=== PATIENT | male | born 1965 | race Two or more races ===

== ENCOUNTER 2022-08-06 10:01 | Outpatient (CLI) | payer OTHER | END 2022-08-06 10:03 | disposition home or self-care (01) | LOC: NUCLEAR 10:01 | PROVIDERS: ATTEND Internal Medicine Cardiovascular Disease | DX: I87.2 Venous insufficiency (chronic) (peripheral) (principal) ==

== ENCOUNTER 2024-10-26 08:23 | Outpatient (CLI) | payer OTHER | END 2024-10-26 08:24 | disposition home or self-care (01) | LOC: NUCLEAR 08:23 | PROVIDERS: ATTEND Internal Medicine Gastroenterology | DX: C18.2 Malignant neoplasm of ascending colon (principal) | CPT/HCPCS: 78816; A9552 ==

== ENCOUNTER 2024-11-25 10:18 | Inpatient (IN) | payer OTHER ==
[~2024-11-25] VITALS: Ht 172.7 cm; Wt 70.3 kg
[~2024-11-25 10:18] MED LIST: GEMFIBROZIL600 MG PO; OXYBUTYNIN CHL2.5 MG PO; PEPCID AC20 MG PO; PREVACID15 M1 PO; ROSUVASTATIN CAL5 MG PO; TAMS0.4C PO
[2024-11-25] MEDS ORDERED: MORPHINE SULFATE 4 MG/ML VIAL IV STA (11:05)
[2024-11-25] MEDS ORDERED: 0.9 % SODIUM CHLORIDE 1,000 ML IV STA (11:07)
[2024-11-25 11:38] LABS: HEMATOCRIT 30.4 % (39.0-48.0); MEAN CELL VOLUME 75.3 fL (80.0-100.00); MEAN CORPUSCULAR HEMOGLOBIN 23.5 pg (27.00-32.0); MEAN CORPUSCULAR HGB CONC 31.2 g/dl (32.0-36.0); PLATELET COUNT 310 K/uL (150-450); RED BLOOD COUNT 4.03 M/uL (4.00-6.00); RED CELL DISTRIBUTION WIDTH 16.1 % (11.5-14.5)
[2024-11-25 11:39] LABS: HEMOGLOBIN 9.5 g/dL (13-16.00)
[2024-11-25 11:53] LABS: ALBUMIN 4.1 gm/dL (3.4-5.0); BILIRUBIN TOTAL 0.82 mg/dL (0.3-1.2); BILIRUBIN,CONJUGATED 0.22 mg/dL (0.0-0.2); BILIRUBIN,UNCONJUGATED 0.6 mg/dL (0.0-0.6); CALCIUM 9.3 mg/dL (8.5-10.1); CREATININE SERUM 1.33 mg/dL (0.70-1.30); GFR 55.22; POTASSIUM 3.76 mEq/L (3.5-5.1); TOTAL PROTEIN 8.1 gm/dL (6.4-8.2)
[2024-11-25] MEDS ORDERED: PIPERACILLIN/TAZOBACTAM SODIUM 3.375 GM VIAL IV STA (12:24)
[2024-11-25] MEDS ORDERED: PIPERACILLIN/TAZOBACTAM SODIUM 3.375 GM VIAL IV ONE (12:32)
[2024-11-25] MEDS ORDERED: DEXTROSE 5 % AND 0.9 % NACL 1,000 ML IV SCH (12:45)
[2024-11-25] MEDS ORDERED: Cyanocobalamin/Mecobalamin 1 TAB.SL SL SCH (12:47)
[2024-11-25 13:00] LABS: URINE APPEARANCE Cloudy; URINE BILIRRUBIN Negative (NEGATIVE); URINE BLOOD Negative; URINE COLOR Yellow; URINE GLUCOSE Negative (NEGATIVE); URINE KETONE Trace (NEGATIVE); URINE LEUKOCYTE Small; URINE NITRATE Negative; URINE PROTEIN Trace (NEGATIVE)
[2024-11-25] MEDS ORDERED: MORPHINE SULFATE 4 MG/ML VIAL IV PRN (13:00)
[2024-11-25] MEDS ORDERED: FUROsemide 20 MG/2 ML VIAL IV SCH (13:00)
[2024-11-25 13:04] LABS: URINE CAST 11.63 uL (0.0-1.40); URINE EPITHELIAL CELLS 40.3 uL (0.0-38.8); URINE WBC 300.1 uL (0.0-23.2)
[2024-11-25 13:15] LABS: URINE CRYSTALS FEW /HPF
[2024-11-25 13:22] VITALS: BP 127/66
[2024-11-25] MEDS ORDERED: DIATRIZOATE MEGLUMINE, SODIUM 30 ML BOTTLE PO STA (15:07)
[2024-11-25] MEDS ORDERED: ENOXAPARIN SODIUM 40 MG/0.4 ML SYRINGE SUBCUTANEO SCH (17:00)
[2024-11-25 19:43] VITALS: BP 146/86; O2SAT 99
[2024-11-25] MEDS ORDERED: TAMSULOSIN HCL 0.4 MG CAP PO SCH (21:00)
[2024-11-25] MEDS ORDERED: FAMOTIDINE/PF 20 MG/2 ML VIAL IV SCH (21:00)
[2024-11-26] VITALS: BP 108/66; O2SAT 97
[2024-11-26 08:09] VITALS: BP 116/69; O2SAT 99
[2024-11-26] MEDS ORDERED: SOD FERRIC GLUC COMPLX/SUCROSE 62.5 MG in 0.9 % SODIUM CHLORIDE 50 ML IV SCH (12:00)
[2024-11-26 16:37] VITALS: BP 122/80; O2SAT 100
[2024-11-26] MEDS ORDERED: CEFTRIAXONE SODIUM 2,000 MG VIAL IV STA (16:42)
[2024-11-27 00:28] VITALS: BP 117/74; O2SAT 97
[2024-11-27 08:21] VITALS: BP 114/72; O2SAT 98
[2024-11-27] MEDS ORDERED: PEG3350/SOD SULF,BICARB,CL/KCL 4,000 ML GALLON PO NR (14:00)
[2024-11-27 16:54] VITALS: BP 145/73; O2SAT 100
[2024-11-27] MEDS ORDERED: CEFTRIAXONE SODIUM 2,000 MG VIAL IV SCH (17:00)
[2024-11-28 00:44] VITALS: BP 137/79; O2SAT 98
[2024-11-28 02:22] LABS: HEMATOCRIT 35.3 % (39.0-48.0); HEMOGLOBIN 11.7 g/dL (13-16.00); MEAN CELL VOLUME 78.2 fL (80.0-100.00); MEAN CORPUSCULAR HEMOGLOBIN 25.8 pg (27.00-32.0); PLATELET COUNT 277 K/uL (150-450); RED BLOOD COUNT 4.52 M/uL (4.00-6.00); RED CELL DISTRIBUTION WIDTH 18.4 % (11.5-14.5)
[2024-11-28 02:41] LABS: INR 1.3; PARTIAL THROMBOPLASTIN TIME 37.3 SECONDS (22.0-34.0); PROTHROMBIN TIME 13.9 SECONDS (9.0-11.5)
[2024-11-28 02:42] LABS: ALBUMIN 3.4 gm/dL (3.4-5.0); CALCIUM 8.7 mg/dL (8.5-10.1); CREATININE SERUM 0.83 mg/dL (0.70-1.30); GFR 95.16; PHOSPHOROUS 2.9 mg/dL (2.5-4.9); POTASSIUM 3.28 mEq/L (3.5-5.1)
[2024-11-28 08:00] VITALS: BP 136/83
[2024-11-28] MEDS ORDERED: POTASSIUM CHLORIDE 20MEQ/100ML H2O PB IV NR ×2 (08:15→09:45)
[2024-11-28] MEDS ORDERED: ONDANSETRON HCL 2 MG/ML VIAL IV SCH (09:00)
[2024-11-28] MEDS ORDERED: DEXTROSE 50 % IN WATER 0.5 G/ML DISP.SYRIN IV PRN (14:45)
[2024-11-28] MEDS ORDERED: ONDANSETRON HCL 2 MG/ML VIAL IV PRN (14:45)
[2024-11-28] MEDS ORDERED: OxyCODONE HCL 5 MG TABLET (ROXICODONE) PO PRN (14:45)
[2024-11-28] MEDS ORDERED: MORPHINE SULFATE 4 MG/ML CARTRIDGE IV PRN (14:45)
[2024-11-28] MEDS ORDERED: 0.9 % SODIUM CHLORIDE 1,000 ML IV SCH (14:45)
[2024-11-28] MEDS ORDERED: BUPIVACAINE HCL 30 ML VIAL IJ ONE (15:15)
[2024-11-28] MEDS ORDERED: LIDOCAINE HCL 1%/EPINEPHRINE 20ML VIAL IJ ONE (15:15)
[2024-11-28] MEDS ORDERED: CEFTRIAXONE SODIUM 2,000 MG VIAL IV ONE (15:15)
[2024-11-28] MEDS ORDERED: METRONIDAZOLE/SODIUM CHLORIDE 500 MG/100 ML PIGGYBACK IV ONE (15:15)
[2024-11-28] MEDS ORDERED: METRONIDAZOLE/SODIUM CHLORIDE 500 MG/100 ML PIGGYBACK IV SCH (15:45)
[2024-11-28] MEDS ORDERED: CEFTRIAXONE SODIUM 2,000 MG VIAL IV SCH (15:45)
[2024-11-28] MEDS ORDERED: POLYETHYLENE GLYCOL 3350 17 GM BLIST.PACK PO SCH (17:00)
[2024-11-28] MEDS ORDERED: MORPHINE SULFATE 4 MG/ML VIAL IV ONE (17:00)
[2024-11-28] MEDS ORDERED: GABAPENTIN 300 MG CAPSULE PO SCH (17:00)
[2024-11-28] MEDS ORDERED: HYOSCYAMINE SULFATE 0.125 MG TAB.SUBL SL SCH (17:00)
[2024-11-28] MEDS ORDERED: PIPERACILLIN/TAZOBACTAM SODIUM 3.375 GM in 0.9 % SODIUM CHLORIDE 100 ML IV SCH (19:01)
[2024-11-28] MEDS ORDERED: ACETAMINOPHEN 500 MG GEL..CAP PO SCH (20:00)
[2024-11-28 20:36] LABS: HEMATOCRIT 34.8 % (39.0-48.0); HEMOGLOBIN 11.3 g/dL (13-16.00); MEAN CORPUSCULAR HEMOGLOBIN 25.5 pg (27.00-32.0); MEAN CORPUSCULAR HGB CONC 32.3 g/dl (32.0-36.0); PLATELET COUNT 338 K/uL (150-450); RED BLOOD COUNT 4.41 M/uL (4.00-6.00); RED CELL DISTRIBUTION WIDTH 18.5 % (11.5-14.5)
[2024-11-28] MEDS ORDERED: TAMSULOSIN HCL 0.4 MG CAP PO ONE (20:47)
[2024-11-28] MEDS ORDERED: FAMOTIDINE/PF 20 MG/2 ML VIAL ONE (20:47)
[2024-11-28] MEDS ORDERED: CELECOXIB 200 MG CAPSULE PO ONE (20:47)
[2024-11-28 20:56] LABS: ALBUMIN 3.1 gm/dL (3.4-5.0); CALCIUM 8.2 mg/dL (8.5-10.1); CREATININE SERUM 0.76 mg/dL (0.70-1.30); GFR 105.34; MAGNESIUM 1.6 mg/dL (1.8-2.4); PHOSPHOROUS 2.8 mg/dL (2.5-4.9); POTASSIUM 3.44 mEq/L (3.5-5.1)
[2024-11-28] MEDS ORDERED: CELECOXIB 200 MG CAPSULE PO SCH (21:00)
[2024-11-28] MEDS ORDERED: FAMOTIDINE/PF 20 MG/2 ML VIAL IV PUSH SCH (21:00)
[2024-11-28 22:01] VITALS: BP 157/87; O2SAT 98
[2024-11-28 22:20] VITALS: BP 168/74; O2SAT 95
[2024-11-29 00:52] VITALS: BP 138/75; O2SAT 96
[2024-11-29 10:05] VITALS: BP 146/76; O2SAT 96
[2024-11-29 10:20] LABS: ALBUMIN 2.8 gm/dL (3.4-5.0); CALCIUM 8.3 mg/dL (8.5-10.1); CREATININE SERUM 0.76 mg/dL (0.70-1.30); GFR 105.34; MAGNESIUM 1.7 mg/dL (1.8-2.4); PHOSPHOROUS 2.6 mg/dL (2.5-4.9); POTASSIUM 3.57 mEq/L (3.5-5.1)
[2024-11-29] MEDS ORDERED: MAGNESIUM SULFATE IN WATER 50 ML IV NR (12:00)
[2024-11-29] MEDS ORDERED: ENOXAPARIN SODIUM 40 MG/0.4 ML SYRINGE SUBCUTANEO SCH (17:00)
[2024-11-29 19:18] VITALS: BP 125/75; O2SAT 98
[2024-11-30 01:02] VITALS: BP 131/79; O2SAT 98
[2024-11-30 08:00] VITALS: BP 144/85; O2SAT 98
[2024-11-30 08:21] LABS: HEMATOCRIT 30.8 % (39.0-48.0); HEMOGLOBIN 9.9 g/dL (13-16.00); MEAN CORPUSCULAR HEMOGLOBIN 25.6 pg (27.00-32.0); MEAN CORPUSCULAR HGB CONC 32.3 g/dl (32.0-36.0); PLATELET COUNT 306 K/uL (150-450); RED BLOOD COUNT 3.89 M/uL (4.00-6.00); RED CELL DISTRIBUTION WIDTH 18.4 % (11.5-14.5)
[2024-11-30] MEDS ORDERED: ENOXAPARIN SODIUM 40 MG/0.4 ML SYRINGE SUBCUTANEO SCH (09:00)
[2024-11-30 09:03] LABS: CALCIUM 8.5 mg/dL (8.5-10.1); CREATININE SERUM 0.82 mg/dL (0.70-1.30); GFR 96.5; MAGNESIUM 2.4 mg/dL (1.8-2.4); PHOSPHOROUS 2.6 mg/dL (2.5-4.9); POTASSIUM 3.27 mEq/L (3.5-5.1)
[2024-11-30] MEDS ORDERED: POTASSIUM CHLORIDE 20MEQ/100ML H2O PB IV NR (11:15)
[2024-11-30 16:00] VITALS: BP 137/86; O2SAT 96
[2024-11-30 23:52] VITALS: BP 124/75; O2SAT 99
[2024-12-01 08:47] VITALS: BP 131/80; O2SAT 98
[2024-12-01 16:00] VITALS: BP 154/87; O2SAT 97
[2024-12-02 00:27] VITALS: BP 136/81; O2SAT 99
[2024-12-02] MEDS ORDERED: SOD FERRIC GLUC COMPLX/SUCROSE 62.5 MG/5 ML AMPUL IV ONE (06:13)
[2024-12-02 08:00] VITALS: BP 147/84
[2024-12-02 16:00] VITALS: BP 159/82; O2SAT 98
[2024-12-02] MEDS ORDERED: FUROsemide 20 MG/2 ML VIAL IV SCH (17:00)
[2024-12-02] MEDS ORDERED: FAMOtidine 20 MG TABLET PO SCH (21:00)
[2024-12-03 00:37] VITALS: BP 145/79; O2SAT 98
[2024-12-03 07:58] LABS: HEMATOCRIT 28.6 % (39.0-48.0); MEAN CELL VOLUME 77.7 fL (80.0-100.00); MEAN CORPUSCULAR HGB CONC 33.5 g/dl (32.0-36.0); PLATELET COUNT 325 K/uL (150-450); RED BLOOD COUNT 3.68 M/uL (4.00-6.00); RED CELL DISTRIBUTION WIDTH 19.2 % (11.5-14.5)
[2024-12-03 08:00] VITALS: BP 139/75; O2SAT 96
[2024-12-03 08:02] LABS: HEMOGLOBIN 9.6 g/dL (13-16.00)
[2024-12-03 08:22] LABS: CALCIUM 8.1 mg/dL (8.5-10.1); CREATININE SERUM 0.79 mg/dL (0.70-1.30); GFR 100.74; MAGNESIUM 1.6 mg/dL (1.8-2.4); POTASSIUM 3.44 mEq/L (3.5-5.1)
[2024-12-03 16:23] VITALS: BP 133/77; O2SAT 99
== END 2024-12-03 21:04 | disposition home or self-care (01) | DRG 329 ==
LOC: ER 10:21 → SURH 13:38
PROVIDERS: General Practice; Surgery; ADMIT Internal Medicine Geriatric Medicine; ATTEND Internal Medicine Geriatric Medicine
PROC: BW21YZZ Computerized Tomography (CT Scan) of Abdomen and Pelvis using Other Contrast (ICD-10-PCS; 2024-11-25)
PROC: B54DZZZ Ultrasonography of Bilateral Lower Extremity Veins (ICD-10-PCS; 2024-11-25)
PROC: 8E0ZXY6 Isolation (ICD-10-PCS; 2024-11-25)
PROC: 30233N1 Transfusion of Nonautologous Red Blood Cells into Peripheral Vein, Percutaneous Approach (ICD-10-PCS; 2024-11-26)
PROC: 07BB4ZZ Excision of Mesenteric Lymphatic, Percutaneous Endoscopic Approach (ICD-10-PCS; 2024-11-28)
PROC: 0DTF4ZZ Resection of Right Large Intestine, Percutaneous Endoscopic Approach (ICD-10-PCS; principal; 2024-11-28 12:00)
DX: C18.0 Malignant neoplasm of cecum (principal); K65.1 Peritoneal abscess; J98.11 Atelectasis; M35.2 Behcet's disease; N39.0 Urinary tract infection, site not specified; K91.89 Other postprocedural complications and disorders of digestive system; K56.7 Ileus, unspecified; C77.2 Secondary and unspecified malignant neoplasm of intra-abdominal lymph nodes; D63.0 Anemia in neoplastic disease; E78.5 Hyperlipidemia, unspecified; F41.8 Other specified anxiety disorders; F41.0 Panic disorder [episodic paroxysmal anxiety]; N40.0 Benign prostatic hyperplasia without lower urinary tract symptoms; N31.9 Neuromuscular dysfunction of bladder, unspecified; R33.8 Other retention of urine; I87.2 Venous insufficiency (chronic) (peripheral); Z86.718 Personal history of other venous thrombosis and embolism; R59.0 Localized enlarged lymph nodes

== ENCOUNTER 2025-01-02 05:50 | Day surgery (SDC) | payer OTHER ==
[2025-01-02 07:09] LABS: INR 1.26; PARTIAL THROMBOPLASTIN TIME 35.4 SECONDS (22.0-34.0); PROTHROMBIN TIME 13.5 SECONDS (9.0-11.5)
[2025-01-02] MEDS ORDERED: CEFAZOLIN SODIUM 1,000 MG VIAL ONE (09:48)
[2025-01-02] MEDS ORDERED: LIDOCAINE HCL 1%/EPINEPHRINE 20ML VIAL IJ ONE (11:59)
[2025-01-02] MEDS ORDERED: BUPIVACAINE HCL/Mpf 0.5% 10ML VIAL ONE (11:59)
[2025-01-02] MEDS ORDERED: HEPARIN SODIUM,PORCINE/PF 100 UNIT/ML SYRINGE IV ONE (11:59)
[2025-01-02] MEDS ORDERED: TRAM1TAB98 PO (12:34)
== END 2025-01-02 14:30 | disposition home or self-care (01) ==
LOC: CIR.AMB 05:50
PROVIDERS: ATTEND Surgery
DX: C18.0 Malignant neoplasm of cecum (principal)
CPT/HCPCS: 36561; C1751